=== PATIENT | male | born 1965 | race Hispanic/Latino ===

== ENCOUNTER 2018-05-19 06:05 | Emergency (ER) | payer MEDICAID ==
[2018-05-19 06:27] VITALS: BP 138/94
[2018-05-19] MEDS ORDERED: ASPIRIN PO ONE (06:55)
[2018-05-19 07:49] LABS: Basophils % (Auto) 0.7 % (0.0-1.8); Eosinophils # (Auto) 0.2 K/mm3 (0.0-0.4); Eosinophils % (Auto) 3.5 % (0.0-4.3); Hematocrit 41.9 % (35.5-45.6); Hemoglobin 14.1 gm/dl (11.8-15.2); Lymphocytes # (Auto) 2.4 K/mm3 (1.2-5.4); Mean Corpuscular HGB Conc 34 % (32-34); Mean Corpuscular Hemoglobin 30 pg (28-32); Mean Corpuscular Volume 90 fl (84-94); Monocytes # (Auto) 0.6 K/mm3 (0.0-0.8); Monocytes % (Auto) 11.3 % (0.0-7.3); Platelet Count 307 K/mm3 (140-440); Red Blood Count 4.65 M/mm3 (3.65-5.03); Red Cell Distribution Width 14.7 % (13.2-15.2)
[2018-05-19 08:08] LABS: BUN/Creatinine Ratio 14; Blood Urea Nitrogen 13 mg/dL (9-20); Hemolysis Index 8
--- NOTE | 2018-05-19 10:02 | Emergency Department Report ---
ED Palpitations HPI - General Chief Complaint: Chest Pain Stated Complaint: PALPITATIONS Time Seen by Provider: 05/19/18 09:21 Source: patient Mode of arrival: Ambulatory Limitations: No Limitations - History of Present Illness Initial Comments: 52-year-old male with past medical history hypertension, bipolar, chronic neck pain, and anxiety presents to the hospital with complaints of intermittent palpitations and mild chest discomfort for the past 4 days. 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 Patient has been experiencing intermittent and throbbing to bilateral fingertips of like his heart was racing with associated lightheadedness. Patient complained of mid upper chest pressure at times as well. Patient states that symptoms are also worse at night and he has intermittent palpitations and throbbing sensation to bilateral fingertips for the past several nights as well as flushed feeling. Patient assumes his blood pressure heart rate were high but he did not measure either during these episodes. Patient has been compliant with his metoprolol until took Remeron and Xanax this morning which helped with some of his symptoms. Patient states his new job is stressful. He had a stress test 3-4 years ago and did not require cardiac catheterization. He denies tobacco use or drug abuse specifically cocaine. - Related Data Home Medications Medication Instructions Recorded Confirmed Last Taken ALPRAZolam 0.25 mg PO TID PRN 05/19/18 05/19/18 Unknown Metoprolol Succinate 50 mg PO DAILY 05/19/18 05/19/18 Unknown Remeron 30 mg PO DAILY 05/19/18 05/19/18 Unknown Seroquel 100 mg PO HS 05/19/18 05/19/18 Unknown traMADol 50 mg PO Q6H PRN 05/19/18 05/19/18 Unknown Allergies Allergy/AdvReac Type Severity Reaction Status Date / Time Penicillins Allergy Hives Verified 05/19/18 06:51 ED Review of Systems ROS: Stated complaint: PALPITATIONS Other details as noted in HPI Comment: All other systems reviewed and negative ED Past Medical Hx - Past Medical History Hx Hypertension: Yes Hx Psychiatric Treatment: Yes (Bipolar, Anxiety) Additional medical history: Chronic Neck Pain - Surgical History Past Surgical History?: No - Social History Smoking Status: Never Smoker Substance Use Type: None - Medications Home Medications: Home Medications Medication Instructions Recorded Confirmed Last Taken Type ALPRAZolam 0.25 mg PO TID PRN 05/19/18 05/19/18 Unknown History Metoprolol Succinate 50 mg PO DAILY 05/19/18 05/19/18 Unknown History Remeron 30 mg PO DAILY 05/19/18 05/19/18 Unknown History Seroquel 100 mg PO HS 05/19/18 05/19/18 Unknown History traMADol 50 mg PO Q6H PRN 05/19/18 05/19/18 Unknown History ED Physical Exam - General Limitations: No Limitations - Other Other exam information: General: No limitations, patient is alert in no acute distress Head exam: Atraumatic, normocephalic Eyes exam: Normal appearance, pupils equal reactive to light, extraocular movements intact ENT: Moist mucous membrane Neck exam: Normal inspection, full range of motion, no meningismus nontender Respiratory exam: Clear to auscultation bilateral, no wheezes, rales, crackles Cardiovascular: Normal rate and rhythm, normal heart sounds Abdomen: Soft, nondistended, and nontender, with normal bowel sounds, no rebound, or guarding Extremity: Full range of motion normal inspection no deformity, no calf tenderness or edema Back: Normal Inspection, full range of motion, no tenderness Neurologic: Alert, oriented x3, cranial nerves intact, no motor or sensory deficit Psychiatric: normal affect, normal mood Skin: Warm, dry, intact ED Course Vital Signs 05/19/18 05/19/18 05/19/18 06:20 06:46 09:22 Temperature 98.2 F 98.2 F Pulse Rate 81 87 Respiratory 18 18 15 Rate Blood Pressure 138/94 138/94 O2 Sat by Pulse 98 97 Oximetry ED Medical Decision Making - Lab Data Result diagrams: 05/19/18 07:26 05/19/18 07:26 Lab Results 05/19/18 05/19/18 05/19/18 Range/Units 07:26 07:26 07:26 WBC 5.0 (4.5-11.0) K/mm3 RBC 4.65 (3.65-5.03) M/mm3 Hgb 14.1 (11.8-15.2) gm/dl Hct 41.9 (35.5-45.6) % MCV 90 (84-94) fl MCH 30 (28-32) pg MCHC 34 (32-34) % RDW 14.7 (13.2-15.2) % Plt Count 307 (140-440) K/mm3 Lymph % (Auto) 47.0 H (13.4-35.0) % Fergus % (Auto) 11.3 H (0.0-7.3) % Eos % (Auto) 3.5 (0.0-4.3) % Baso % (Auto) 0.7 (0.0-1.8) % Lymph # 2.4 (1.2-5.4) K/mm3 Fergus # 0.6 (0.0-0.8) K/mm3 Eos # 0.2 (0.0-0.4) K/mm3 Baso # 0.0 (0.0-0.1) K/mm3 Seg Neutrophils % 37.5 L (40.0-70.0) % Seg Neutrophils # 1.9 (1.8-7.7) K/mm3 Sodium 141 (137-145) mmol/L Potassium 4.2 (3.6-5.0) mmol/L Chloride 104.4 (98-107) mmol/L Carbon Dioxide 25 (22-30) mmol/L Anion Gap 16 mmol/L BUN 13 (9-20) mg/dL Creatinine 0.9 (0.8-1.5) mg/dL Estimated GFR > 60 ml/min BUN/Creatinine Ratio 14 % Glucose 97 (75-100) mg/dL Calcium 9.0 (8.4-10.2) mg/dL Troponin T < 0.010 (0.00-0.029) ng/mL TSH 8.010 H (0.270-4.200) mlU/mL Free T4 (0.76-1.46) ng/dL 05/19/18 05/19/18 Range/Units 07:26 09:25 WBC (4.5-11.0) K/mm3 RBC (3.65-5.03) M/mm3 Hgb (11.8-15.2) gm/dl Hct (35.5-45.6) % MCV (84-94) fl MCH (28-32) pg MCHC (32-34) % RDW (13.2-15.2) % Plt Count (140-440) K/mm3 Lymph % (Auto) (13.4-35.0) % Fergus % (Auto) (0.0-7.3) % Eos % (Auto) (0.0-4.3) % Baso % (Auto) (0.0-1.8) % Lymph # (1.2-5.4) K/mm3 Fergus # (0.0-0.8) K/mm3 Eos # (0.0-0.4) K/mm3 Baso # (0.0-0.1) K/mm3 Seg Neutrophils % (40.0-70.0) % Seg Neutrophils # (1.8-7.7) K/mm3 Sodium (137-145) mmol/L Potassium (3.6-5.0) mmol/L Chloride (98-107) mmol/L Carbon Dioxide (22-30) mmol/L Anion Gap mmol/L BUN (9-20) mg/dL Creatinine (0.8-1.5) mg/dL Estimated GFR ml/min BUN/Creatinine Ratio % Glucose (75-100) mg/dL Calcium (8.4-10.2) mg/dL Troponin T < 0.010 (0.00-0.029) ng/mL TSH (0.270-4.200) mlU/mL Free T4 0.85 (0.76-1.46) ng/dL - EKG Data -: EKG Interpreted by Me EKG shows normal: sinus rhythm, axis (qrs 76), QRS complexes (qrsd 38), ST-T waves (no stemi/t inv) Rate: normal - Medical Decision Making palpitations Patient was unable to record his heart rate during episodes I educated patient on how to take his pulse and suggested that he buy a blood pressure and pulse monitor for home No signs of tachycardia or arrhythmia in the ED Cardiac enzyme negative 2 The TSH was normal T4 follow up will be advised Patient be advised to follow-up with a access consultant for Holter monitor (he has had it in the past) and to continue his current medication Also advised to continue to monitor his heart rate and blood pressure during these episodes Patient has history of herniated disc in neck and has been performing more strenuous activity. This could possibly be the cause of his pain to bilateral fingers or this could be related to anxiety. Outpatient follow-up advised - Differential Diagnosis anxiety, palpitations, arrhythmia, MA, unstable angina, cervical radiculopa Critical Care Time: No Critical care attestation.: If time is entered above; I have spent that time in minutes in the direct care of this critically ill patient, excluding procedure time. ED Disposition Clinical Impression: Intermittent palpitations, Anxiety, Elevated TSH, Cervical radicular pain Disposition: TO HOME OR SELFCARE Is pt being admited?: No Does the pt Need Aspirin: No Condition: Stable Instructions: Palpitations (ED), Cervical Radiculopathy (ED), Anxiety (ED) Additional Instructions: Continue your current medication. Continued to monitor your heart rate and blood pressure home during these episodes as discussed. Follow up with your access consultant or with the access consultant provided for further outpatient workup and evaluation. Please return if symptoms worsen as indicated by your discharge instructions. Your thyroid stimulating hormone test is elevated with suggest that you might have hypothyroidism. This causes a slow not a fast heartbeat. Please follow-up with your primary care doctor for further testing of your thyroid. Referrals: PRIMARY CAREMD [Primary Care Provider] - 3-5 Days KIRK HULL MD [Staff Physician] - 3-5 Days Time of Disposition: 10:09
== END 2018-05-19 10:21 | disposition home or self-care (01) ==
LOC: ED 06:05
DX: F41.9 Anxiety disorder, unspecified (principal); R94.6 Abnormal results of thyroid function studies; R00.2 Palpitations; M54.12 Radiculopathy, cervical region; I10 Essential (primary) hypertension; F31.9 Bipolar disorder, unspecified; G89.29 Other chronic pain; Z88.0 Allergy status to penicillin; Z79.899 Other long term (current) drug therapy
CPT/HCPCS: 36415; 80048; 84439; 84443; 84484; 85025; 93005; 93010